=== PATIENT | female | born 1950 | race Caucasian/White ===

== ENCOUNTER 2017-11-25 10:10 | Emergency (ER) | payer OTHER ==
[~2017-11-25] VITALS: Ht 165.1 cm; Wt 60.0 kg
[2017-11-25 10:24] VITALS: BP 173/91; PULSE 84; RESP 18; TEMP 98; O2SAT 100
[2017-11-25 10:39] VITALS: BP 146/80; PULSE 68; RESP 18; O2SAT 99
[2017-11-25] MEDS ORDERED: IRON1TAB7 PO (10:44)
[2017-11-25] MEDS ORDERED: ALBUAER3 INH (10:44)
--- NOTE | 2017-11-25 11:47 | PD ---
HPI Chief Complaint: Headache Time Seen by Provider: 10:59 Travel History International Travel<30 days: No Contact w/Intl Traveler<30days: No Traveled to known affect area: No History of Present Illness HPI The patient was seen and examined in the presence of the nurse. At no point in time was I in the room without the nurse present. Patient reports that 9 days ago she had a head injury when she hit the back of her head on a cabinet. 2 days after that she again hit her head on a cabinet in the same location. 2 days ago she went to [place] emergency room and had a normal CAT scan of her brain. She also had a normal chest x-ray. She has been having intermittent symptoms like continued headache or lightheadedness or pins and needles in her feet. She is anxious about these. So she came back for reevaluation. Symptom severity is moderate. Duration 9 days. No alleviating factors. No exacerbating factors. PFSH Past Medical History Asthma: Yes Diabetes: No Migraines: Yes Tetanus Vaccination: > 5 Years Influenza Vaccination: No ?: Not Menopausal: Yes Tubal Ligation: Yes Past Surgical History Abdominal Surgery: Yes (R OVARY REMOVED) Social History Alcohol Use: Yes (OCCAS) Tobacco Use: Yes (1/2 PPD) Substance Use: No Allergies-Medications (Allergen,Severity, Reaction): Coded Allergies: shellfish derived (Verified Allergy, Severe, 11/25/17) Penicillins (Verified Allergy, Intermediate, 11/25/17) cephalexin (Verified Allergy, Intermediate, 11/25/17) codeine (Verified Allergy, Intermediate, 11/25/17) morphine (Verified Allergy, Intermediate, 11/25/17) Reported Meds & Prescriptions Reported Meds & Active Scripts Active Reported Nufera (Iron Combinations) 125-1-170 Tab 1 Tab PO DAILY Proair Hfa 8.5 GM Inh (Albuterol Sulfate) 90 Mcg/Act Aer 2 Puff INH Q4-6H PRN 108 mcg/actuation Review of Systems General / Constitutional: No: Fever Eyes: No: Visual changes HENT: Positive: Headaches, Lightheadedness Cardiovascular: No: Chest Pain or Discomfort Respiratory: No: Shortness of Breath Gastrointestinal: No: Abdominal Pain Genitourinary: No: Dysuria Musculoskeletal: No: Pain Skin: No Rash Neurologic: Positive: Paresthesia, No: Weakness Psychiatric: No: Depression Endocrine: No: Polydipsia Hematologic/Lymphatic: No: Easy Bruising Physical Exam Narrative GENERAL: Well-nourished, well-developed patient in no apparent distress. SKIN: Focused skin assessment reveals no rash and nodules. Skin is Warm and dry. HEAD: Atraumatic. Normocephalic. EYES: Pupils equal and round. No scleral icterus. No injection or drainage. ENT: No nasal bleeding or discharge. Mucous membranes pink and moist. NECK: Trachea midline. No JVD. No midline tenderness CARDIOVASCULAR: Regular rate and rhythm. No murmur appreciated. RESPIRATORY: No accessory muscle use. Clear to auscultation. Breath sounds equal bilaterally. GASTROINTESTINAL: Abdomen soft, non-tender, nondistended. Hepatic and splenic margins not palpable. MUSCULOSKELETAL: No obvious deformities. No clubbing. No cyanosis. No edema. NEUROLOGICAL: Awake and alert. No obvious cranial nerve deficits. Motor grossly within normal limits. Normal speech. PSYCHIATRIC: Appropriate mood and affect; insight and judgment normal. Data Data Last Documented VS Vital Signs Date Time Temp Pulse Resp B/P (MAP) Pulse Ox O2 Delivery O2 Flow Rate FiO2 11/25/17 10:39 68 18 146/80 (102) 99 Room Air 11/25/17 10:24 98.0 [facility] Medical Decision Making Medical Screen Exam Complete: Yes Emergency Medical Condition: Yes Medical Record Reviewed: Yes Differential Diagnosis Postconcussive syndrome, concussion, paresthesias, anxiety Narrative Course I have reviewed the patient's electronic medical record. Patient had head injury and reports negative brain CT 2 days ago. Nothing objective here. She is neurologically intact without objective findings. We discussed options. I offered her a repeat CT of the brain and lab studies and obtaining records from [place] to review their information. She seemed frustrated with the options. She thought about them and says she just wants to go home and follow-up with her physician. I suggested she may want a neurology evaluation She does seem stable for outpatient follow-up. Diagnosis Primary Impression: Postconcussive syndrome Additional Instructions: Follow-up with primary care or neurology Return if worse Med/Other Pt SpecificInfo: Other Disposition: 01 DISCHARGE HOME Condition: Stable Cirilo Bartes MD November 25, 2017 11:47
== END 2017-11-25 12:19 | disposition home or self-care (01) ==
LOC: NEPC 10:10
DX: F07.81 Postconcussional syndrome (principal); J45.909 Unspecified asthma, uncomplicated; F17.200 Nicotine dependence, unspecified, uncomplicated
CPT/HCPCS: 99282